=== PATIENT | male | born 1950 | race African-American/Black ===

== ENCOUNTER → 2017-11-30 | Day surgery (SDC) | payer OTHER ==
[2017-11-27 10:57] VITALS: BMI 28.3
--- NOTE | 2017-11-27 11:08 | HP ---
HISTORY OF PRESENT ILLNESS This is a 67 year old male with PMHx of IDDM, HTN, hyperlipidemia, PAD, multiple toe amputations, who will be having correction of right foot 4th hammer toe on 11/30/17. Medical clearance in chart provided by vascular surgery, Dr. Carson Patiño. The patient denies any chest pain, palpitations, syncope, dizziness, headache, nausea, vomiting, diarrhea, abdominal pain, lower extremity edema. PCP: Abraham Kirk MD Recent travel: denies Family History: denies Social History: denies Smoking: denies Alcohol: denies Drugs: denies REVIEW OF SYSTEMS CONSTITUTIONAL: Absent: fever, chills, diaphoresis, generalized weakness, malaise, loss of appetite, weight change HEENT: Absent: rhinorrhea, nasal congestion, throat pain, throat swelling, difficulty swallowing, mouth swelling, ear pain, eye pain, visual changes CARDIOVASCULAR: Absent: chest pain, syncope, palpitations, irregular heart rate, lightheadedness , peripheral edema RESPIRATORY: Absent: cough, shortness of breath, dyspnea with exertion, orthopnea, wheezing, stridor, hemoptysis GASTROINTESTINAL: Absent: abdominal pain, abdominal distension, nausea, vomiting, diarrhea, constipation, melena, hematochezia GENITOURINARY: Absent: dysuria, frequency, urgency, hesitancy, hematuria, flank pain, genital pain MUSCULOSKELETAL: Right foot 4th digit hammer toe Absent: myalgia, arthralgia, joint swelling, back pain, neck pain SKIN: Absent: rash, itching, pallor HEMATOLOGIC/IMMUNOLOGIC: Absent: easy bleeding, easy bruising, lymphadenopathy, frequent infections ENDOCRINE: Absent: unexplained weight gain, unexplained weight loss, heat intolerance, cold intolerance NEUROLOGIC: Absent: headache, focal weakness or paresthesias, dizziness, unsteady gait, seizure, mental status changes, bladder or bowel incontinence PSYCHIATRIC: Absent: anxiety, depression, suicidal or homicidal ideation, hallucinations. PHYSICAL EXAMINATION: GENERAL: Awake, alert, and fully oriented, in no acute distress. HEAD: Normal with no signs of trauma. EYES: Pupils equal, round and reactive to light, extraocular movements intact, sclera anicteric, conjunctiva clear. No lid lag. EARS, NOSE, THROAT: Ears normal, nares patent, oropharynx clear without exudates. Moist mucous membranes. NECK: Normal range of motion, supple without lymphadenopathy, JVD, or masses. LUNGS: Breath sounds equal, clear to auscultation bilaterally. No wheezes, and no crackles. No accessory muscle use. HEART: Regular rate and rhythm, normal S1 and S2 ABDOMEN: Soft, nontender, not distended, normoactive bowel sounds, no guarding, no rebound, no masses. No hepatomegaly or splenomegaly. MUSCULOSKELETAL: Normal range of motion at all joints. No bony deformities or tenderness. No CVA tenderness. UPPER EXTREMITIES: 2+ pulses, warm, well-perfused. No cyanosis. No clubbing. No peripheral edema. LOWER EXTREMITIES: Right foot 1st and 3rd digit amputation. Right foot 4th digit hammer toe. 2+ pulses, warm, well-perfused. No calf tenderness. No peripheral edema. NEUROLOGICAL: Cranial nerves II-XII intact. Normal speech. Normal gait. PSYCHIATRIC: Cooperative. Good eye contact. Appropriate mood and affect. SKIN: Warm, dry, normal turgor, no rashes or lesions noted, normal capillary refill. Assessment: This is a 67 year old male with PMHx of IDDM, HTN, hyperlipidemia, PAD, multiple toe amputations, who will be having correction of right foot 4th hammer toe on 11/30/17. Plan: 1) Right foot 4th digit hammer toe revision - Per surgery - Clearance in chart from Dr. Carson Patiño MD (vascular surgery) 2) IDDM - Per surgeon, hold insulin the morning of surgery as the patient will be NPO after midnight 3) Hyperlipidemia - Continue Simvastatin 4) HTN - Continue Losartan - Continue Nifedipine 5) PAD - Per patient, had right leg stent placed on 11/12/17. On ASA which the patient was told to continue by Dr. Shaver's office - Patient states he is not on Plavix 6) CKD? - Patient has labs from Dr. Kirk's office that show Cr 1.6. The patient is unaware of any issues with his kidneys, however, he does report that Dr. Kirk is following his Cr closely
[~2017-11-30] MED LIST: BUPIVACAINE HCL/PF (5 MG/ML) 30 ML VIAL IJ ONE; LIDOCAINE 1%/EPI 1:100000 (50 ML MULTI DOSE VIAL) INF ONE; ceFAZolin SODIUM 1 GM VIAL IVPB ONE
--- NOTE | 2017-11-30 10:32 | OP ---
DATE OF OPERATION: 11/30/2017 PROCEDURE: Hammer digit repair of the 4th digit of the right foot. PREOPERATIVE DIAGNOSIS: Hammer toe and diabetic foot ulcer. POSTOPERATIVE DIAGNOSIS: Hammer toe and diabetic foot ulcer. ANESTHESIA: Sedated with local infiltration with monitored anesthetic care. SURGEON: Dr. Remy Shaver DPM CLINICAL INDICATIONS OF PROCEDURE: This diabetic patient with multiple digital amputations has a severely contracted 4th toe of the right foot with a distal pulp diabetic foot ulceration due to diabetic neuropathy with atrophy of the extrinsic musculature. The procedure is to prevent and to correct the ulceration. Patient was apprised of the risks, benefits, and alternatives to procedure including the real risk of amputation due to his history of peripheral atherosclerotic disease. Not performing the procedure also adds a significant risk of amputation as patient has a foot ulceration on the distal pulp of the digit. NARRATIVE: After prepping the patient in the usual manner, attention was directed to 4th cid of the right foot, where a longitudinal incision was made from the mid shaft of the proximal phalanx to proximal nail fold. All bleeds were ligated. Dissection was carried down to the long extensor tendon, which was incised transversely at the level of the proximal interphalangeal articulation. The collateral ligaments of that joint were incised. Using a combination of a double action bone cutter and a sagittal saw, the head of the proximal phalanx was removed. The digit was then noted to be in rectus. The wound was then flushed, and the skin was closed in the usual manner. REMY SHAVER DPM RT/[id number]
[2017-11-30 18:16] VITALS: BP 113/67; PULSE 72; TEMP 97.5
--- NOTE | 2017-12-03 15:43 | PATH ---
Surgical Pathology Report Patient Name: DONITA AYALA [facility]. Rec. #: [id number] /Age/Gender: 1950 (Age: 67) / M Account: [id number] Location: [facility] SURGICAL Taken: 11/30/2017 Received: 11/30/2017 Reported: 12/03/2017 Physicians: Maxi Shaver M.D. Specimen(s) Received BONE FROM RIGHT 4TH TOE Clinical History Right fourth hammertoe Final Diagnosis BONE FROM RIGHT FOURTH TOE: BONE WITH FATTY MARROW AND FIBROCONNECTIVE TISSUE SHOWING DEGENERATIVE CHANGE. Electronically Signed Ivana Eller M.D. Gross Description Received in formalin labeled "bone fourth toe right foot," is a 1.3 x 0.9 x 0.6 cm fontaine, irregular portion of bone as well as a 1.5 cm greatest dimension portion of soft tissue. The bone is bisected and the specimen is entirely submitted in one cassette, following decalcification. /11/30/2017 saudi11/30/2017
== END | disposition home or self-care (01) ==
LOC: JASU-SURG 06:00
PROVIDERS: ATTEND Podiatrist Foot & Ankle Surgery
PROC: 0SNP0ZZ Release Right Toe Phalangeal Joint, Open Approach (ICD-10-PCS; principal; 2017-11-30 08:30)
DX: M20.41 Other hammer toe(s) (acquired), right foot (principal); I10 Essential (primary) hypertension; E78.5 Hyperlipidemia, unspecified; E11.9 Type 2 diabetes mellitus without complications; I73.9 Peripheral vascular disease, unspecified; Z89.429 Acquired absence of other toe(s), unspecified side; E11.621 Type 2 diabetes mellitus with foot ulcer; L97.519 Non-pressure chronic ulcer of other part of right foot with unspecified severity
CPT/HCPCS: 82962; 88304-TC; 88311-TC; 97116-GP